=== PATIENT | male | born 1970 ===

== ENCOUNTER 2021-05-12 14:27 | Outpatient (REF) | payer SELFPAY ==
--- NOTE | ~2021-05-12 | XR_ITS ---
EXAMINATION: XR AP BILATERAL KNEE STANDING AND LEFT KNEE 2 VIEWS CLINICAL INFORMATION: Pain left knee. COMPARISON: None. TECHNIQUE: Bilateral knee standing and left knee 2 views. FINDINGS: BILATERAL AP KNEE: There is mild reduction in medial compartment joint space both knees compared to lateral compartment. No loose bodies or bony erosive changes. No joint effusion seen. The soft tissues are normal. LEFT KNEE: The patellofemoral compartment joint space is normal. There is mild suprapatellar joint effusion. No loose body seen. 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 Mild suprapatellar joint effusion left knee. No visible acute fracture or dislocation seen.
--- NOTE | ~2021-05-12 | XR_ITS ---
EXAMINATION: XR AP BILATERAL KNEE STANDING AND LEFT KNEE 2 VIEWS CLINICAL INFORMATION: Pain left knee. COMPARISON: None. TECHNIQUE: Bilateral knee standing and left knee 2 views. FINDINGS: BILATERAL AP KNEE: There is mild reduction in medial compartment joint space both knees compared to lateral compartment. No loose bodies or bony erosive changes. No joint effusion seen. The soft tissues are normal. LEFT KNEE: The patellofemoral compartment joint space is normal. There is mild suprapatellar joint effusion. No loose body seen. 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 Mild suprapatellar joint effusion left knee. No visible acute fracture or dislocation seen.
== END 2021-05-12 14:28 | disposition home or self-care (01) ==
LOC: HO.HOSX 14:27
PROVIDERS: Visit Provider Physician Assistant
DX: M25.562 Pain in left knee (principal); M25.561 Pain in right knee
CPT/HCPCS: 73560; 73565; 99202